=== PATIENT | female | born 1975 | race Caucasian/White ===

== ENCOUNTER 2016-03-05 12:57 | Outpatient (CLI) | payer MEDICAID | END 2016-03-05 12:58 | disposition home or self-care (01) | DX: N64.4 Mastodynia (principal) ==

== ENCOUNTER 2016-03-19 12:14 | Emergency (ER) | payer MEDICAID ==
[2016-03-19] MEDS ORDERED: HYDROcod/ACETAM 5/325 MG TABLET PO STA (14:29)
[2016-03-19] MEDS ORDERED: CIPROFLOXACIN 250 MG TABLET PO STA (14:29)
[2016-03-19] MEDS ORDERED: PHENAZOPYRIDINE 100 MG TABLET PO STA (14:29)
[2016-03-19] MEDS ORDERED: DEXAMETHASONE 10 MG/ML VIAL PO STA (14:29)
[2016-03-19] MEDS ORDERED: PHENAZOPYRIDINE 100 MG TABLET PO ONE (14:34)
[2016-03-19] MEDS ORDERED: DEXAMETHASONE 10 MG/ML VIAL ONE (14:34)
[2016-03-19] MEDS ORDERED: HYDROcod/ACETAM 5/325 MG TABLET ONE (14:34)
[2016-03-19] MEDS ORDERED: CIPROFLOXACIN 250 MG TABLET PO ONE (14:34)
== END 2016-03-19 14:49 | disposition home or self-care (01) ==
DX: N30.10 Interstitial cystitis (chronic) without hematuria (principal)
CPT/HCPCS: 81001; 87077; 87086; 87181; 99283; A9270

== ENCOUNTER 2017-03-12 09:24 | Emergency (ER) | payer MEDICAID ==
--- NOTE | 2017-03-12 10:19 | XRAY Preliminary Report ---
Exam: XR FOOT 3 VIEW RT IMPRESSION: Soft tissue swelling. No acute osseous abnormality. [facility] SITE ID: [id number]
--- NOTE | 2017-03-12 10:19 | XRAY Report ---
EXAM: RIGHT FOOT RADIOGRAPHY EXAM DATE: 03/12/2017 09:59 AM. CLINICAL HISTORY: Pain and swelling after injury. COMPARISON: None. TECHNIQUE: 3 views. FINDINGS: Bones: No fractures or bone lesions. Joints: Normal. No subluxations. Soft Tissues: Dorsal soft tissue swelling. IMPRESSION: Soft tissue swelling. No acute osseous abnormality. [facility] Referring Provider Line: [phone] SITE ID: [id number]
[2017-03-12] MEDS ORDERED: HYDROcod/ACETAM 5/325 MG TABLET PO STA (11:50)
--- NOTE | 2017-03-12 11:51 | ED Physician Documentation ---
PD HPI LOWER EXT INJURY - Stated complaint Stated Complaint: R FOOT INJ - Chief complaint Chief Complaint: Ext Problem - History obtained from History obtained from: Patient, Friend - History of Present Illness PD HPI LOW EXT INJURY LOCATION: Right, Foot Type of injury: Blunt / blow Where injury occurred: Home Timing - onset: Today Timing - duration: Hours Timing - details: Abrupt onset, Still present Improved by: Rest, Immobilization Worsened by: Moving, Palpating Associated symptoms: Swelling Contributing factors: No: Anticoagulated Similar symptoms before: Has not had sx before Recently seen: Not recently seen - Additional information Additional information: 42-year-old female dropped a heavy glass jar on her foot she has significant pain over the dorsum of the foot and is unable to move her toes without significant pain. Review of Systems Constitutional: denies: Fever Eyes: denies: Decreased vision Ears: denies: Ear pain Nose: denies: Congestion Throat: denies: Sore throat Cardiac: denies: Chest pain / pressure Respiratory: denies: Cough GI: denies: Vomiting PD PAST MEDICAL HISTORY - Past Surgical History Past Surgical History: Yes /REGISTERED APPRAISER: section - Present Medications Home Medications: Ambulatory Orders Medication Instructions Recorded Confirmed HYDROcod/ACETAM 5/325 [[place] 5/325] 1 - 2 ea PO Q6H PRN #15 tablet 03/12/17 - Allergies Allergies/Adverse Reactions: Allergies Allergy/AdvReac Type Severity Reaction Status Date / Time Cephalosporins Allergy Anaphylaxis Verified 03/12/17 09:50 codeine Allergy Hives Verified 03/12/17 09:50 - Social History Does the pt smoke?: No Smoking Status: Never smoker Does the pt drink ETOH?: No Does the pt have substance abuse?: No - Immunizations Immunizations are current?: Yes PD ED PE NORMAL - Vitals Vital signs reviewed: Yes (normal) - General General: Alert and oriented X 3, No acute distress, Well developed/nourished - Respiratory Respiratory: No respiratory distress - Derm Derm: Normal color, Warm and dry, No rash - Extremities Extremities: No deformity, Other (There is marked tenderness over the dorsum of the right foot and pain to movement of the foot or toes ) - Neuro Neuro: No motor deficit, No sensory deficit Eye Opening: Spontaneous Motor: Obeys Commands Verbal: Oriented GCS Score: 15 - Psych Psych: Normal mood, Normal affect Results - Vitals Vitals: Vital Signs - 24 hr 03/12/17 09:48 Temperature 36.5 C Heart Rate 89 Respiratory 18 Rate Blood Pressure 119/70 O2 Saturation 98 Oxygen O2 Source Room air Procedures - Splint (location) right foot Splint applied by: Tech Type of splint: Fiberglass, Posterior Other: Patient tolerated well, No complications, Neurovascular intact, Good alignment, Crutches provided PD MEDICAL DECISION MAKING - ED course Complexity details: reviewed results, re-evaluated patient, considered differential, d/w patient, d/w family ED course: 42-year-old female was dropped a heavy object on her foot she has pain over the dorsum of the foot no evidence of fracture on x-ray examination. She is placed into a posterior splint and put on crutches. Departure - Departure Disposition: 01 Home, Self Care Clinical Impression: Contusion of right foot Qualifiers: Encounter type: initial encounter Qualified Code(s): S90.31XA - Contusion of right foot, initial encounter Condition: Stable Instructions: ED Contusion Foot Follow-Up: Kaylah [place] ARNP [Primary Care Provider] - Prescriptions: HYDROcod/ACETAM 5/325 [[place] 5/325] 1 - 2 ea PO Q6H PRN #15 tablet PRN Reason: Pain
[2017-03-12 19:39] VITALS: BP 102/61
== END 2017-03-12 12:52 | disposition home or self-care (01) ==
LOC: ED 09:24
DX: S90.31XA Contusion of right foot, initial encounter (principal); W20.8XXA Other cause of strike by thrown, projected or falling object, initial encounter; Y92.019 Unspecified place in single-family (private) house as the place of occurrence of the external cause
CPT/HCPCS: 29505; 73630; 99283; A9270

== ENCOUNTER 2018-06-09 11:21 | Outpatient (CLI) | payer MEDICAID ==
--- NOTE | 2018-06-10 08:52 | Mammography Report ---
Reason: SCREENING MAMMOGRAM FOR BREAST CANCER Procedure Date: 06/09/2018 Accession Number: [id number] / [id number] Procedure: MGN - Screening Mammo Dig Bilat CPT Code: FULL RESULT: EXAM: Screening Mammo Dig Bilat DATE: 06/09/2018 11:44 AM CLINICAL HISTORY: Screening encounter. No reported risk factors. TECHNIQUE: (B) - Bilateral CC and MLO views were obtained. COMPARISON: 03/05/2016 and 08/31/2013. PARENCHYMAL PATTERN: (D) - The breast(s) demonstrate(s) heterogeneously dense fibroglandular parenchyma. FINDINGS: There are no suspicious masses, calcifications, or areas of distortion. IMPRESSION: Negative examination. BI-RADS category 1. RECOMMENDATION: (ANNUAL) - Recommend routine annual screening mammography. BI-RADS CATEGORY: (1) - Negative. STANDARD QUALIFYING STATEMENTS: 1. This examination was not reviewed with the aid of Computer-Aided Detection (CAD). 2. A negative or benign imaging report should not preclude biopsy if clinically suspicious findings are present. 3. Dense breasts may obscure an underlying neoplasm. 4. This examination was reviewed without the aid of 3D breast imaging (tomosynthesis).
== END 2018-06-09 11:22 | disposition home or self-care (01) ==
LOC: DI.N 11:21
PROVIDERS: ATTEND Nurse Practitioner Family
DX: Z12.31 Encounter for screening mammogram for malignant neoplasm of breast (principal)
CPT/HCPCS: 77067